=== PATIENT | male | born 1955 | race Caucasian/White ===

== ENCOUNTER 2021-08-15 08:58 | Inpatient (IN) | payer MEDICAID, SELFPAY ==
[~2021-08-15] VITALS: Ht 195.6 cm; Wt 93.7 kg
[~2021-08-15 08:58] MED LIST: LEVO100T5 PO
[2021-08-15 10:00] VITALS: BP 157/101
[2021-08-15] MEDS ORDERED: ALEV220T22 PO (10:15)
[2021-08-15] MEDS ORDERED: HOME MED LIST COMPLETE! XX SCH (10:20)
[2021-08-15] MEDS: NS 1,000 ML IV SCH ×2 (11:03→22:08)
[2021-08-15 11:08] LABS: BASO # 0.1 10^3/uL (0.0-0.2); EOS # 0.1 10^3/uL (0.0-0.5); EOS % 1.9 % (0.0-3.0); HEMATOCRIT 43.4 % (42.0-52.0); HEMOGLOBIN 14.3 g/dl (13.5-17.5); LYMPH # 1.2 10^3/uL (1.5-5.0); LYMPH % 17.4 % (24.0-44.0); MEAN CORPUSCULAR HEMOGLOBIN 31.4 pg (27.0-33.0); MEAN CORPUSCULAR HGB CONC 32.9 g/dl (32.0-36.5); MEAN CORPUSCULAR VOLUME 95.4 fl (80.0-96.0); MONO # 0.5 10^3/uL (0.0-0.8); MONO % 7.1 % (2.0-8.0); NEUTROPHILS # 4.9 10^3/uL (1.5-8.5); NEUTROPHILS % 72.3 % (36.0-66.0); PLATELET COUNT, AUTOMATED 292 10^3/uL (150-450); RED BLOOD COUNT 4.55 10^6/uL (4.30-6.10); WHITE BLOOD COUNT 6.8 10^3/uL (4.0-10.0)
[2021-08-15 11:23] LABS: INR 1.1; PARTIAL THROMBOPLASTIN TIME 31.1 SECONDS (25.9-37.0); PROTHROMBIN TIME 14.6 SECONDS (12.7-14.5)
[2021-08-15 11:35] LABS: CK-MB VALUE MASS < 1.0 NG/ML (<3.6); CPK CREATINE PHOSPHOKINASE 98 U/L (39-308); MB/CK RELATIVE INDEX 1.02 (< OR =4)
[2021-08-15 11:39] LABS: FREE THYROXINE INDEX 1.7 % (1.4-3.8); T UPTAKE 29 % (33-40)
[2021-08-15 11:40] LABS: ALBUMIN 3.8 GM/DL (3.2-5.2); ALT/SGPT 19 U/L (12-78); BILIRUBIN,TOTAL 0.8 MG/DL (0.2-1.0); BLOOD UREA NITROGEN 19 MG/DL (7-18); C REACTIVE PROTEIN QUANTITATIV 1.67 MG/DL (0.00-0.30); CALCIUM LEVEL 9.6 MG/DL (8.8-10.2); CARBON DIOXIDE LEVEL 30 MEQ/L (21-32); CHLORIDE LEVEL 102 MEQ/L (98-107); CREATININE FOR GFR 0.94 MG/DL (0.70-1.30); GLOMERULAR FILTRATION RATE > 60.0 (>49); GLUCOSE, FASTING 100 MG/DL (70-100); NT-PRO BNP 89 PG/ML (<125); POTASSIUM SERUM 4.1 MEQ/L (3.5-5.1); SODIUM LEVEL 138 MEQ/L (136-145); TOTAL PROTEIN 7.1 GM/DL (6.4-8.2)
[2021-08-15 11:52] LABS: HEPATITIS B SURFACE ANTIGEN NEGATIVE (NEGATIVE)
[2021-08-15] MEDS ORDERED: MORPHINE 15 MG SA TAB PO ONE (11:55)
[2021-08-15] MEDS ORDERED: MORPHINE 30 MG TAB **MSIR PO PRN (11:55)
[2021-08-15] MEDS ORDERED: PILL CUTTER 1 EACH XX PRN (12:00)
[2021-08-15 12:08] LABS: HEMOGLOBIN A1c 5.4 %
[2021-08-15 12:20] LABS: HEPATITIS B CORE ANTIBODY IGM NEGATIVE (NEGATIVE); HEPATITIS C VIRUS ABY INDEX 0.1 INDEX (<0.8)
--- NOTE | 2021-08-15 12:39 | REP ---
INDICATION: metastatic lung mass r/o brain mets COMPARISON: None. TECHNIQUE: Axial noncontrast images from the skull base to the thoracic inlet with coronal reformations. This CT examination was performed using the following dose reduction techniques: Automated exposure control, adjustment of mA and/or kv according to the patient's size, and use of iterative reconstruction technique. FINDINGS: Few small very subtle areas of white matter low-density change identified which are nonspecific given the patient's age and may represent microvascular ischemic disease. No significant edema, mass or mass effect. No hemorrhage. No extra-axial collection. The ventricles are symmetric. Cisterns are patent. Calvarium is intact. Paranasal sinuses and mastoid air cells are clear. IMPRESSION: Very subtle small areas of low-density white matter changes are nonspecific given the patient's age. No significant edema or obvious mass/mass effect. <Electronically signed by Germán Guido > 08/15/21 [id number]
[2021-08-15 12:45] LABS: ERYTHROCYTE SEDIMENTATION RATE 7 mm/hr (0-20)
[2021-08-15] MEDS: LIDOCAINE 5% (LIDODERM) PATCH TD SCH (12:46)
[2021-08-15 14:00] VITALS: BP 132/84
[2021-08-15] MEDS: GASTROGRAFIN SOLUTION 30ML PO SCH ×2 (14:05→15:03)
--- NOTE | 2021-08-15 15:07 | REP ---
INDICATION: RIGHT LUNG MASS, BONE PAIN R/O METS. COMPARISON: None. TECHNIQUE: Eighteen images in total FINDINGS: AP lateral views of the skull: No fracture or destructive osseous lesion. AP and lateral views of the cervical spine: Degenerative changes. No acute fracture or destructive osseous lesion. AP view of the chest: There is a fracture likely accompanied by a lytic lesion involving the 3rd rib on the left. There is a similar finding involving the left 6th rib. There appears to be enlargement of the anterior and of the left 6th rib. Lung lesions cannot be ruled out. Additional rib lesions cannot be ruled out. AP and lateral views of the lumbar spine there is an age undetermined grade 1 superior endplate compression deformity involving L3. Degenerative changes are also noted throughout. There is marginal osteophytosis seen throughout bilaterally particularly on the right at L2-3. There is no definite evidence of a lytic or blastic osseous lesion. AP pelvis: Bilateral hip DJD. No evidence of a definite lytic or blastic osseous lesion. AP view right femur: No evidence of a lytic or blastic osseous lesion. AP view left femur: No evidence of a lytic or blastic osseous lesion. Right humerus: No evidence of a lytic or blastic osseous lesion involving the humerus, however, there is evidence of a fracture involving what appears to be the 9th right rib possibly a pathological fracture. The age of this cannot be determined. Left humerus: No evidence of a lytic or blastic osseous lesion. The imaged portion of the left lung shows an irregular 3.7 cm sized coin lesion in the left lower lobe. AP lateral thoracic spine degenerative changes are present. No evidence of a lytic or blastic lesion involving the thoracic spine. IMPRESSION: 1. Multiple rib fractures likely pathological as described above. 2. Left lung lesion as described above. This is consistent with neoplasm. Contrast-enhanced CT examination of the chest is recommended. 3. Other findings as described above. <Electronically signed by Ishmael Loaiza > 08/15/21 [id number]
[2021-08-15] MEDS ORDERED: LORazepam 2 MG TAB PO PRN (15:45)
[2021-08-15] MEDS ORDERED: ISOVUE-370 76% 100ML VIAL As Ordered ONE (15:54)
--- NOTE | 2021-08-15 16:45 | REP ---
INDICATION: RIGHT LUNG MASS COMPARISON: None. TECHNIQUE: Standard helical technique after the intravenous administration of 100 cc Isovue 370 FINDINGS: There is mediastinal and hilar adenopathy. There are no pleural or pericardial effusions. The imaged upper abdomen is within normal limits. Evaluation of the osseous structures shows likely pathological fractures and lytic lesions involving the right 4th, 5th, 6, 7th, 9th, and 11th ribs and the left 2nd, 3rd, 4th, 6th, 7th, and 9th ribs. Additionally, lytic lesions are suggested involving the manubrium sternum and 1st sternal segment. Suspicious lesions are also seen involving T3, T5, and T7 vertebral bodies with a more subtle possibly blastic appearing lesion involving the T 9th vertebral body. Evaluation of the lung malone shows a spiculated 4.6 x 3.4 x 3 cm sized mass in the left lower lobe. The smaller asymmetric density is seen in the right CP angle which measures approximately 2.2 x 1.5 x 1.5 cm. IMPRESSION: 1. There is a large mass in the left lung lower lobe, as described above, consistent with neoplasm. 2. Smaller mass in the right CP angle as described above. Additional neoplastic change cannot be ruled out. 3. Evidence of skeletal metastasis as described above. 4. There is mediastinal and hilar adenopathy. <Electronically signed by Ishmael Loaiza > 08/15/21 [id number]
--- NOTE | 2021-08-15 16:57 | REP ---
INDICATION: RIGHT LUNG MASS. COMPARISON: None. TECHNIQUE: Standard helical technique after the intravenous administration of 100 cc Isovue 370 FINDINGS: There is an 8 mm sized focus of intense enhancement seen only on the immediate phase contrast-enhanced imaging in the posterior segment the right lobe of the liver. This has completely washed out on the venous phase imaging. The liver is otherwise unremarkable. The gallbladder, spleen, pancreas, adrenal glands, and kidneys are within normal limits. Bowel loops and the mesenteries are within normal limits. There is descending colon and sigmoid colon diverticulosis. The abdominal aorta and para-aortic regions are within normal limits. There is no para-aortic adenopathy. There is no free fluid or free air. Bone window technique throughout the examination shows numerous lytic lesions in the imaged portion of the right femur and in the right hemipelvis with evidence of lytic and blastic lesions throughout the sacrum. Mixed lytic and blastic lesions may also be developing and L2 and L3. IMPRESSION: 1. There is a small focus of intense enhancement seen in the posterior segment of the right lower liver, as described above, likely representing a vascular anomaly. 2. Extensive skeletal metastasis as described above. 3. Other findings as described above. <Electronically signed by Ishmael Loaiza > 08/15/21 [id number]
--- NOTE | 2021-08-15 18:12 | HPE ---
HISTORY AND PHYSICAL DATE OF ADMISSION: 08/15/2021 CHIEF COMPLAINT: Recurrent falls, spot in my lungs. 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 The patient says that last year, he slipped on some ice and fell on his back and hit his head. He was able to get up and crawled inside his house. He has had recurrent falls and then maybe about a month ago, he was sitting on a chair which had some wheels. It flipped over, hit his head again, complained of shoulder pain, back pain, knee pain and bilateral hip pain. The patient did not see a medical provider at that time and he felt that he had no significant pain that heating pad and occasional acetaminophen cannot deal with. On , he saw his primary care physician due to continued pain in his back. He was told that he has a lung mass with multiple metastatic lesions in the ribs, on the left third rib, left sixth rib and a 3.7 cm left lower lobe coin lesion. The patient was then sent to Dr. Feldman at the [facility] who saw him today. He complained of pain across his shoulder blades. He has had a weight loss from 225 lb to 93.7 kilos. He denies any cough, pleuritic chest pain, palpitations, hemoptysis, dyspnea on exertion, lightheadedness, dizziness, nausea, vomiting, abdominal pain, diarrhea. Appetite has been the same. The patient's vitals were stable, saturating 96% on room air. Bone osseous series shows lytic lesions at the left third and sixth rib with a 3.7 cm coin lesion in the left lower lobe, most likely neoplasm, recommendations for CT chest with contrast. Hospitalist was asked to admit the patient for expedited lung cancer workup and pain control. PAST MEDICAL HISTORY: 1. Hypothyroidism. 2. Recurrent falls. 3. Traumatic injuries to the right hip, left ankle. 4. Umbilical hernia. 5. Inguinal hernias. PAST SURGICAL HISTORY: 1. Bilateral inguinal hernia repairs. 2. Umbilical hernia repair with mesh. ALLERGIES: No known drug allergies. HOME MEDICATIONS: Synthroid 100 mcg daily. 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 He is DO NOT RESUSCITATE, DO NOT INTUBATE. Healthcare proxy is Sara Barth , patient's . The patient was a smoker, quit 14 years ago, previously smoked 1/2 pack per day since age of 19. He drinks beer daily, about 30 in a week. FAMILY HISTORY: Mother and father are . Mother had dementia. Father had schizophrenia and diabetes. REVIEW OF SYSTEMS: 10-point system negative aside from positive findings in HPI. PHYSICAL EXAMINATION: VITAL SIGNS: Temperature 97.6, pulse 72, respiratory rate 20, blood pressure 157/101, 97% on room air. GENERAL: The patient is disheveled appearing, dry mucous membranes, tapia, poor dentition. No JVD, thyromegaly. No cervical lymphadenopathy. LUNGS: Diminished but clear to auscultation, no wheezing, rales or rhonchi. HEART: S1, S2, sinus rhythm. No murmurs, rubs or gallops. ABDOMEN: Soft, nontender and nondistended. Positive bowel sounds x4 quadrants. EXTREMITIES: No cyanosis, clubbing or pitting edema. Laboratory data, imaging study, microbiology: Please see the chart. 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 The patient will be admitted as an inpatient for the following issues: 1. Left lower lobe coin lesion most likely metastatic lung cancer to the bones. Patient is admitted for expedited workup for cancer and treatment and pain control for his bone mets. CT, chest, abdomen and pelvis have been ordered. Then we will need to do a biopsy. Once the biopsy has returned, medical oncology work and radiation oncology for palliative radiation. For now for pain control for the metastatic rib lesions, patient will be given morphine 15 mg q.4 as needed, bowel regimen. 2. Hypothyroidism. Continue on Synthroid 100 mcg daily. 3. Weight loss secondary to possible cachexia from possible metastatic lung cancer to the bones with weight loss. 4. Previous history of tobacco abuse, quit 14 years ago. 5. Active tobacco abuse, drinks about 30 drinks a week, CIWA protocol, multivitamins, thiamine and folate. 6. DVT prophylaxis: With compression stockings and Lovenox. 7. Code Status: DO NOT RESUSCITATE, DO NOT INTUBATE.
[2021-08-15] MEDS: FOLIC ACID 1 MG TAB PO SCH (18:25)
[2021-08-15] MEDS: MULTIVITAMINS/MINERALS THERAP 1 TAB PO SCH (18:25)
[2021-08-15] MEDS: **NOTE PATIENT COMMENT** MISC XX SCH (21:00)
[2021-08-15 22:00] VITALS: BP 138/87
[2021-08-15] MEDS: THIAMINE 100 MG TAB PO SCH (22:04)
[2021-08-15] MEDS: MORPHINE 15 MG SA TAB PO SCH (22:08)
[2021-08-16] MEDS: LEVOTHYROXINE 100MCG TABLET (0.1MG) PO SCH (05:29)
[2021-08-16] MEDS: NS 1,000 ML IV SCH ×3 (05:31→20:20)
[2021-08-16 05:51] LABS: BASO # 0.1 10^3/uL (0.0-0.2); BASO % 1.1 % (0.0-1.0); EOS # 0.2 10^3/uL (0.0-0.5); EOS % 3.5 % (0.0-3.0); HEMATOCRIT 39.5 % (42.0-52.0); HEMOGLOBIN 12.9 g/dl (13.5-17.5); LYMPH # 1.5 10^3/uL (1.5-5.0); LYMPH % 28.3 % (24.0-44.0); MEAN CORPUSCULAR HEMOGLOBIN 31.3 pg (27.0-33.0); MEAN CORPUSCULAR HGB CONC 32.7 g/dl (32.0-36.5); MEAN CORPUSCULAR VOLUME 95.9 fl (80.0-96.0); MONO # 0.5 10^3/uL (0.0-0.8); MONO % 9.6 % (2.0-8.0); NEUTROPHILS # 3.1 10^3/uL (1.5-8.5); NEUTROPHILS % 57.1 % (36.0-66.0); PLATELET COUNT, AUTOMATED 260 10^3/uL (150-450); RED BLOOD COUNT 4.12 10^6/uL (4.30-6.10); WHITE BLOOD COUNT 5.4 10^3/uL (4.0-10.0)
[2021-08-16 06:00] VITALS: BP 123/83
[2021-08-16 06:16] LABS: BLOOD UREA NITROGEN 15 MG/DL (7-18); CALCIUM LEVEL 8.3 MG/DL (8.8-10.2); CARBON DIOXIDE LEVEL 27 MEQ/L (21-32); CHLORIDE LEVEL 106 MEQ/L (98-107); CREATININE FOR GFR 0.89 MG/DL (0.70-1.30); GLOMERULAR FILTRATION RATE > 60.0 (>49); GLUCOSE, FASTING 98 MG/DL (70-100); POTASSIUM SERUM 4.6 MEQ/L (3.5-5.1); SODIUM LEVEL 141 MEQ/L (136-145)
[2021-08-16] MEDS: MULTIVITAMINS/MINERALS THERAP 1 TAB PO SCH (08:26)
[2021-08-16] MEDS: MORPHINE 15 MG SA TAB PO SCH ×2 (08:27→20:16)
[2021-08-16] MEDS: FOLIC ACID 1 MG TAB PO SCH (08:28)
[2021-08-16] MEDS: THIAMINE 100 MG TAB PO SCH ×2 (08:28→20:11)
[2021-08-16] MEDS: LIDOCAINE 5% (LIDODERM) PATCH TD SCH (08:31)
--- NOTE | 2021-08-16 09:20 | RADONC.CN ---
Radiation Oncology Hx/Consult Radiation Oncology Consult Date of Service: Aug 16, 2021 Pt Identifier Titus Soto is a 66 year old male with a history of smoking who was admitted for workup of what appears to be a LLL primary lung cancer with metastases to bone, NB the right hip which is causing him pain and difficulty with ambulation. He is seen today to discuss his workup so far and for consideration of palliative RT to the right hip. 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 Prompted him to go to [facility] ED where he had a CXR which showed a 4 cm LLL mass. Plain films of hip were unrev ealing. He was referred to medical oncology @ [facility], Dr. Feldman facilitated admission for workup of the mass and palliative RT on 08/15/21. Recent data: Allergies / Meds Allergies: Coded Allergies: No Known Allergies (Verified Allergy, Unknown, 08/15/21) Home Meds Reported Medications Naproxen Sodium (Aleve) 220 Mg Tablet, 440 MG PO Q12H PRN for PAIN LEVEL 1-5 08/15/21 Levothyroxine Sodium (LEVOTHYROXINE SODIUM) 100 Mcg Tablet, 100 MCG PO DAILY 08/15/21 Vital Signs Vital Signs Date Time Temp Pulse Resp B/P (MAP) Pulse Ox O2 Delivery O2 Flow Rate FiO2 08/16/21 08:27 18 08/16/21 06:00 97.6 80 123/83 (96) 94 Room Air Diagnostic and Laboratory Diagnostic Review Radiologic images, relevant labs and pathology reports were personally reviewed and discussed with Mr. Soto. Laboratory Tests 08/15/21 10:49 08/16/21 05:25 Laboratory Tests 08/15/21 10:37: Methicillin-Resist S.aureus DNA PCR NOT DETECTED 08/15/21 10:49: White Blood Count 6.8, Red Blood Count 4.55, Hemoglobin 14.3, Hematocrit 43.4, Mean Corpuscular Volume 95.4, Mean Corpuscular Hemoglobin 31.4, Mean Corpuscular Hemoglobin Concent 32.9, Red Cell Distribution Width 12.2, Platelet Count 292, Immature Granulocyte % (Auto) 0.3, Neutrophils (%) (Auto) 72.3H, Lymphocytes (%) (Auto) 17.4L, Monocytes (%) (Auto) 7.1, Eosinophils (%) (Auto) 1.9, Basophils (%) (Auto) 1.0, Neutrophils # (Auto) 4.9, Lymphocytes # (Auto) 1.2L, Monocytes # (Auto) 0.5, Eosinophils # (Auto) 0.1, Basophils # (Auto) 0.1, Nucleated Red Blood Cells % (auto) 0.0, Erythrocyte Sedimentation Rate 7, Prothrombin Time 14.6H, Prothromb Time International Ratio 1.10, Activated Partial Thromboplast Time 31.1, Sodium Level 138, Potassium Level 4.1, Chloride Level 102, Carbon Dioxide Level 30, Anion Gap 6L, Blood Urea Nitrogen 19H, Creatinine 0.94, Glomerular Filtration Rate > 60.0, Fasting Glucose 100, Estimated Mean Plasma Glucose 108, Hemoglobin A1c 5.4, Lactic Acid Level 0.9, Calcium Level 9.6, Total Bilirubin 0.8, Aspartate Amino Transf (AST/SGOT) 27, Alanine Aminotransferase (ALT/SGPT) 19, Alkaline Phosphatase 535H, Total Creatine Kinase 98, Creatine Kinase MB < 1.0, Creatine Kinase MB Relative Index 1.02, Troponin I High Sensitivity < 3.0L, C-Reactive Protein, Quantitative 1.67H, FI-Rkv-V-Type Natriuretic Peptide 89, Total Protein 7.1, Albumin 3.8, Albumin/Globulin Ratio 1.2, Prostate Specific Antigen Screen 1.96, Procalcitonin <0.05, Thyroid Stimulating Hormone (TSH) 17.000H, Free Thyroxine Index 1.7, Thyroxine (T4) 6.0, Triiodothyronine (T3) Uptake 29L, Hepatitis A IgM Antibody NEGATIVE, Hepatitis B Surface Antigen NEGATIVE, Hepatitis B Core IgM Antibody NEGATIVE, Hepatitis C Antibody Index 0.1 08/16/21 05:25: White Blood Count 5.4, Red Blood Count 4.12L, Hemoglobin 12.9L, Hematocrit 39.5L, Mean Corpuscular Volume 95.9, Mean Corpuscular Hemoglobin 31.3, Mean Corpuscular Hemoglobin Concent 32.7, Red Cell Distribution Width 12.2, Platelet Count 260, Immature Granulocyte % (Auto) 0.4, Neutrophils (%) (Auto) 57.1, Lymphocytes (%) (Auto) 28.3, Monocytes (%) (Auto) 9.6H, Eosinophils (%) (Auto) 3.5H, Basophils (%) (Auto) 1.1H, Neutrophils # (Auto) 3.1, Lymphocytes # (Auto) 1.5, Monocytes # (Auto) 0.5, Eosinophils # (Auto) 0.2, Basophils # (Auto) 0.1, Nucleated Red Blood Cells % (auto) 0.0, Sodium Level 141, Potassium Level 4.6, Chloride Level 106, Carbon Dioxide Level 27, Anion Gap 8, Blood Urea Nitrogen 15, Creatinine 0.89, Glomerular Filtration Rate > 60.0, Fasting Glucose 98, Calcium Level 8.3L Assessment and Plan Impression Mr. Soto is a 66 year old male with a history of [] who was referred to the Department of Radiation Oncology for consideration of []. Plan We had an extensive discussion with Mr. Soto regarding the diagnosis at hand and available therapeutic options. We discussed the logistics of receiving radiation therapy in detail including the need for a 1-time planning session. After discussing the risks, benefits and alternatives to radiation therapy, Mr. Soto was amenable to pursuing radiotherapy. All questions were answered to the patient's satisfaction. We instructed the patient that if there were any questions,concerns or changes in clinical status in the interim to contact us. Billing Statement Total time of minutes was spent preparing for the visit , obtaining HPI , examining the patient , reviewing diagnostic tests , discussing management options , coordinating care , and writing this note . OSMEL DUKES MD Aug 16, 2021 09:20
--- NOTE | 2021-08-16 10:01 | RADONC.CN ---
Radiation Oncology Hx/Consult Radiation Oncology Consult Date of Service: Aug 16, 2021 Pt Identifier Titus Soto is a 66 year old male with a history of smoking who was admitted for workup of what appears to be a LLL primary lung cancer with metastases to bone, NB the right hip which is causing him pain and difficulty with ambulation. He is seen today to discuss his workup so far and for consideration of palliative RT to the right hip. 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 Prompted him to go to [facility] ED where he had a CXR which showed a 4 cm LLL mass. Plain films of hip were unrevealing. He was referred to medical oncology @ [facility], Dr. Feldman facilitated admission for workup of the mass and palliative RT on 08/15/21. Recent data: 08/15/21 CT chest FINDINGS: There is mediastinal and hilar adenopathy. There are no pleural or pericardial effusions. The imaged upper abdomen is within normal limits. Evaluation of the osseous structures shows likely pathological fractures and lytic lesions involving the right 4th, 5th, 6, 7th, 9th, and 11th ribs and the left 2nd, 3rd, 4th, 6th, 7th, and 9th ribs. Additionally, lytic lesions are suggested involving the manubrium sternum and 1st sternal segment. Suspicious lesions are also seen involving T3, T5, and T7 vertebral bodies with a more subtle possibly blastic appearing lesion involving the T 9th vertebral body. Evaluation of the lung malone shows a spiculated 4.6 x 3.4 x 3 cm sized mass in the left lower lobe. The smaller asymmetric density is seen in the right CP angle which measures approximately 2.2 x 1.5 x 1.5 cm. IMPRESSION: 1. There is a large mass in the left lung lower lobe, as described above, consistent with neoplasm. 2. Smaller mass in the right CP angle as described above. Additional neoplastic change cannot be ruled out. 3. Evidence of skeletal metastasis as described above. 4. There is mediastinal and hilar adenopathy. 08/15/21 CT abdomen pelvis FINDINGS: There is an 8 mm sized focus of intense enhancement seen only on the immediate phase contrast-enhanced imaging in the posterior segment the right lobe of the liver. This has completely washed out on the venous phase imaging. The liver is otherwise unremarkable. The gallbladder, spleen, pancreas, adrenal glands, and kidneys are within normal limits. Bowel loops and the mesenteries are within normal limits. There is descending colon and sigmoid colon diverticulosis. The abdominal aorta and para-aortic regions are within normal limits. There is no para-aortic adenopathy. There is no free fluid or free air. Bone window technique throughout the examination shows numerous lytic lesions in the imaged portion of the right femur and in the right hemipelvis with evidence of lytic and blastic lesions throughout the sacrum. Mixed lytic and blastic lesions may also be developing and L2 and L3. IMPRESSION: 1. There is a small focus of intense enhancement seen in the posterior segment of the right lower liver, as described above, likely representing a vascular anomaly. 2. Extensive skeletal metastasis as described above. 3. Other findings as described above. Interval History Titus reports his main goal is to get back to work. He has been having right hip and knee pain for ~ 3 weeks, steadily worsening, now has trouble walking due to pain. He denies falls or trauma to the hip. He has pain in the shoulders as well. The pain in the hip is aching and 5/10 at all times, worse when he bears weight. He has had a 20 lbs unintentional weight loss in the past year. Past Medical History: Hernias Hypothyroidism Past Surgical History: BL hernia repairs Family History: No significant cancer history Social History: 30 pack year former smoker Drinks 30 beers per week Allergies / Meds Allergies: Coded Allergies: No Known Allergies (Verified Allergy, Unknown, 08/15/21) Home Meds Reported Medications Naproxen Sodium (Aleve) 220 Mg Tablet, 440 MG PO Q12H PRN for PAIN LEVEL 1-5 08/15/21 Levothyroxine Sodium (LEVOTHYROXINE SODIUM) 100 Mcg Tablet, 100 MCG PO DAILY 08/15/21 Vital Signs Vital Signs Date Time Temp Pulse Resp B/P (MAP) Pulse Ox O2 Delivery O2 Flow Rate FiO2 08/16/21 08:27 18 08/16/21 06:00 97.6 80 123/83 (96) 94 Room Air General Exam: Alert, Cooperative, No Acute Distress Chest Exam: Clear to auscultation Heart Exam: Rate Normal, Regular Rhythm Extremity Exam: Negative: Edema Neuro Exam: Normal Speech, Strength at 5/5 X4 ext, Cranial Nerves 3-12 NL, Other (No tenderness to palpation over the right hemipelvis) Diagnostic and Laboratory Diagnostic Review Radiologic images, relevant labs and pathology reports were personally reviewed and discussed with Mr. Soto. Laboratory Tests 08/15/21 10:49 08/16/21 05:25 Laboratory Tests 08/15/21 10:37: Methicillin-Resist S.aureus DNA PCR NOT DETECTED 08/15/21 10:49: White Blood Count 6.8, Red Blood Count 4.55, Hemoglobin 14.3, Hematocrit 43.4, Mean Corpuscular Volume 95.4, Mean Corpuscular Hemoglobin 31.4, Mean Corpuscular Hemoglobin Concent 32.9, Red Cell Distribution Width 12.2, Platelet Count 292, Immature Granulocyte % (Auto) 0.3, Neutrophils (%) (Auto) 72.3H, Lymphocytes (%) (Auto) 17.4L, Monocytes (%) (Auto) 7.1, Eosinophils (%) (Auto) 1.9, Basophils (%) (Auto) 1.0, Neutrophils # (Auto) 4.9, Lymphocytes # (Auto) 1.2L, Monocytes # (Auto) 0.5, Eosinophils # (Auto) 0.1, Basophils # (Auto) 0.1, Nucleated Red Blood Cells % (auto) 0.0, Erythrocyte Sedimentation Rate 7, Prothrombin Time 14.6H, Prothromb Time International Ratio 1.10, Activated Partial Thromboplast Time 31.1, Sodium Level 138, Potassium Level 4.1, Chloride Level 102, Carbon Dioxide Level 30, Anion Gap 6L, Blood Urea Nitrogen 19H, Creatinine 0.94, Valerie merular Filtration Rate > 60.0, Fasting Glucose 100, Estimated Mean Plasma Glucose 108, Hemoglobin A1c 5.4, Lactic Acid Level 0.9, Calcium Level 9.6, Total Bilirubin 0.8, Aspartate Amino Transf (AST/SGOT) 27, Alanine Aminotransferase (ALT/SGPT) 19, Alkaline Phosphatase 535H, Total Creatine Kinase 98, Creatine Kinase MB < 1.0, Creatine Kinase MB Relative Index 1.02, Troponin I High Sensitivity < 3.0L, C-Reactive Protein, Quantitative 1.67H, ZV-Vup-V-Type Natriuretic Peptide 89, Total Protein 7.1, Albumin 3.8, Albumin/Globulin Ratio 1.2, Prostate Specific Antigen Screen 1.96, Procalcitonin <0.05, Thyroid Stimulating Hormone (TSH) 17.000H, Free Thyroxine Index 1.7, Thyroxine (T4) 6.0, Triiodothyronine (T3) Uptake 29L, Hepatitis A IgM Antibody NEGATIVE, Hepatitis B Surface Antigen NEGATIVE, Hepatitis B Core IgM Antibody NEGATIVE, Hepatitis C Antibody Index 0.1 08/16/21 05:25: White Blood Count 5.4, Red Blood Count 4.12L, Hemoglobin 12.9L, Hematocrit 39.5L, Mean Corpuscular Volume 95.9, Mean Corpuscular Hemoglobin 31.3, Mean Corpuscular Hemoglobin Concent 32.7, Red Cell Distribution Width 12.2, Platelet Count 260, Immature Granulocyte % (Auto) 0.4, Neutrophils (%) (Auto) 57.1, Lymphocytes (%) (Auto) 28.3, Monocytes (%) (Auto) 9.6H, Eosinophils (%) (Auto) 3.5H, Basophils (%) (Auto) 1.1H, Neutrophils # (Auto) 3.1, Lymphocytes # (Auto) 1.5, Monocytes # (Auto) 0.5, Eosinophils # (Auto) 0.2, Basophils # (Auto) 0.1, Nucleated Red Blood Cells % (auto) 0.0, Sodium Level 141, Potassium Level 4.6, Chloride Level 106, Carbon Dioxide Level 27, Anion Gap 8, Blood Urea Nitrogen 15, Creatinine 0.89, Glomerular Filtration Rate > 60.0, Fasting Glucose 98, Calcium Level 8.3L Assessment and Plan Impression Mr. Soto is a 66 year old male with a history of smoking who was admitted for workup of what appears to be a LLL primary lung cancer with metastases to bone, NB the right hip which is causing him pain and difficulty with ambulation. He is seen today to discuss his workup so far and for consideration of palliative RT to the right hip. Stage LLL NSCLC [id number] stage IVB Performance Status ECOG 2 Plan We had an extensive discussion with Mr. Soto regarding the diagnosis at hand and available therapeutic options. I reviewed him imaging with him to date, which shows a likely LLL primary lung cancer and diffuse bone metastases. I do not see any evidence of visceral metastases, which bodes well. With respect the right hip pain, I recommend that we proceed with palliative RT immediately, which is in line with his desire to return to full function, and continue to work. For treatment I will give 20 Gy in 5 fractions to the right killian-pelvis, as his pain is more diffuse in character across the right hip region than focal, and there are a number of lesions in the region. We discussed the logistics of receiving radiation therapy in detail including the need for a 1-time planning session. This will occur today. Treatment will proceed tomorrow. We reviewed the side effects of treatment including fatigue and skin redness. We can revisit treatment of other sites as the need arises. If he is discharged prior to completion of the 5 fraction course, he may continue as an outpatient without interruption. After discussing the risks, benefits and alternatives to radiation therapy, Mr. Soto was amenable to pursuing radiotherapy. All questions were answered to the patient's satisfaction. We instructed the patient that if there were any questions,concerns or changes in clinical status in the interim to contact us. Recommendations Obtain biopsy Palliative RT to right hemipelvis 20 Gy in 5 fractions Simulation today First treatment tomorrow Billing Statement Total time of [51] minutes was spent preparing for the visit [3], obtaining HPI [7], examining the patient [3], reviewing diagnostic tests [8], discussing management options [14], coordinating care [4], and writing this note [12]. OSMEL DUKES MD Aug 16, 2021 10:01
[2021-08-16 11:08] LABS: ANTINUCLEAR ANTIBODIES DIRECT Negative (Negative)
[2021-08-16 14:00] VITALS: BP_SYST 152; BP_SYST 155; BP_DIAS 86; BP_DIAS 99
[2021-08-16 14:30] VITALS: BP 152/86
--- NOTE | 2021-08-16 14:34 | IPN ---
PROGRESS NOTE DATE: 08/16/2021 SUBJECTIVE: Patient complains of 3/10 pain in the bilateral hips, knees, shoulder on the right. He complains of 7/10 pain at the flank on the left side. Afebrile, no chills overnight. OBJECTIVE: Vital signs: Temperature 98, pulse 62, respiratory rate 19, blood pressure 123/83, 97% on room air. General: Awake, alert, oriented times 3, answering questions appropriately. Lungs: Clear to auscultation, no wheezes, rhonchi or rales. Heart: S1 and S2 sinus rhythm. Abdomen: Soft, nontender, nondistended, positive bowel sounds. Extremities: No cyanosis, clubbing or pitting edema. LABORATORY DATA/IMAGING STUDIES/MICROBIOLOGY: Please see the chart. 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 Feldman, Medical Oncologist, for admission for expedited staging and diagnosis. IMPRESSIONS/PLAN: 1. Left lower lobe mass most likely metastatic lung cancer to the bones: Patient will be undergoing CT guided biopsy today. Abdomen has a small lesion on the liver. Skeletal survey and bone scan shows diffuse metastatic skeletal disease in the ribs and hips, sacrum. Radiation oncology is consulted for palliative radiation. 2. Hypothyroidism: On Synthroid 100 mcg daily. 3. Weight loss related to malignancy and hypothyroidism. 4. History of tobacco abuse: Quit 14 years ago. 5. Active alcohol abuse: Currently on CIWA protocol. 6. DVT prophylaxis: With compression stockings. CODE STATUS: Do Not Intubate, Do Not Resuscitate.
--- NOTE | 2021-08-16 15:43 | REP ---
INDICATION: POST LEFT LUNG BIOPSY, 1 VIEW, PA EXPIRATION. COMPARISON: CT biopsy images today, CT chest 08/15/2021. TECHNIQUE: Single expiratory view chest. FINDINGS: There is a small left apical pneumothorax status post left lung biopsy. Left lower lobe mass is seen. The heart is not significantly enlarged. The mediastinal silhouette appears unremarkable. IMPRESSION: Small left apical pneumothorax status post left lung biopsy. <Electronically signed by Dimitry Oates > 08/16/21 [id number]
[2021-08-16] MEDS ORDERED: ACETAMINOPHEN TAB 650MG DOSE (2X325MG) PO PRN (16:50)
--- NOTE | 2021-08-16 17:10 | REP ---
INDICATION: LEFT LOWER LOBE LUNG LESION BIOPSY CYTOLOGY. COMPARISON: None. TECHNIQUE: The procedure is performed by CANDIDO Evans, under the direct supervision of Dr. Oates. The risks and benefits of the procedure were explained to the patient and informed consent was obtained both orally and written. Directly prior to the start of the procedure, a formal timeout was done in the exam room. The left lower lobe lung mass was localized using CT guidance. Skin was prepped and draped in the usual sterile fashion. Ten ml of 1% lidocaine 10 mg/ml was used as a local anesthetic. FINDINGS: Using CT guidance a 19/20 gauge coaxial needle biopsy system was inserted and advanced into the nodule. Four core biopsy samples were obtained and sent to the lab. CT images obtained directly after the biopsy show evidence of a small pneumothorax. After the appropriate amount of monitored convalescence the patient was discharged from the department. IMPRESSION: Technically successful left lower lobe lung biopsy yielding 4 core biopsy specimens. These were sent to the lab for further evaluation, results pending. <Electronically signed by Raquel Patiño > 08/16/21 [id number] <Electronically signed by Dimitry Oates > 08/16/21 [id number]
[2021-08-16] MEDS: **NOTE PATIENT COMMENT** MISC XX SCH (20:19)
[2021-08-16 22:00] VITALS: BP 124/58
[2021-08-17 06:00] VITALS: BP_SYST 124; BP_SYST 132; BP_DIAS 58; BP_DIAS 78
[2021-08-17] MEDS: LEVOTHYROXINE 100MCG TABLET (0.1MG) PO SCH (06:25)
[2021-08-17 07:10] LABS: BASO # 0.1 10^3/uL (0.0-0.2); BASO % 1.3 % (0.0-1.0); EOS # 0.2 10^3/uL (0.0-0.5); EOS % 3.5 % (0.0-3.0); HEMATOCRIT 39.8 % (42.0-52.0); HEMOGLOBIN 13.1 g/dl (13.5-17.5); LYMPH # 1.4 10^3/uL (1.5-5.0); MEAN CORPUSCULAR HEMOGLOBIN 31.3 pg (27.0-33.0); MEAN CORPUSCULAR HGB CONC 32.9 g/dl (32.0-36.5); MONO # 0.6 10^3/uL (0.0-0.8); MONO % 10.3 % (2.0-8.0); NEUTROPHILS # 3.2 10^3/uL (1.5-8.5); NEUTROPHILS % 58.5 % (36.0-66.0); PLATELET COUNT, AUTOMATED 255 10^3/uL (150-450); RED BLOOD COUNT 4.19 10^6/uL (4.30-6.10); WHITE BLOOD COUNT 5.4 10^3/uL (4.0-10.0)
[2021-08-17] MEDS: NS 1,000 ML IV SCH (07:12)
[2021-08-17 07:33] LABS: BLOOD UREA NITROGEN 12 MG/DL (7-18); CALCIUM LEVEL 8.5 MG/DL (8.8-10.2); CARBON DIOXIDE LEVEL 30 MEQ/L (21-32); CHLORIDE LEVEL 105 MEQ/L (98-107); CREATININE FOR GFR 0.87 MG/DL (0.70-1.30); GLOMERULAR FILTRATION RATE > 60.0 (>49); GLUCOSE, FASTING 97 MG/DL (70-100); POTASSIUM SERUM 4.1 MEQ/L (3.5-5.1); SODIUM LEVEL 138 MEQ/L (136-145)
[2021-08-17] MEDS: FOLIC ACID 1 MG TAB PO SCH (07:59)
[2021-08-17] MEDS: THIAMINE 100 MG TAB PO SCH (07:59)
[2021-08-17] MEDS: MULTIVITAMINS/MINERALS THERAP 1 TAB PO SCH (07:59)
[2021-08-17] MEDS: MORPHINE 15 MG SA TAB PO SCH (08:01)
[2021-08-17] MEDS: LIDOCAINE 5% (LIDODERM) PATCH TD SCH (08:04)
--- NOTE | 2021-08-17 09:01 | REP ---
INDICATION: pneumothorax s/p thoracentesis COMPARISON: None. TECHNIQUE: PA and lateral. FINDINGS: Left lower lobe opacity consistent with area of atelectasis/pneumonia along with small pleural effusions. No pneumothorax. Mediastinum and cardiac silhouette are normal. Skeletal structures intact. IMPRESSION: Left lower lobe airspace disease and small bilateral pleural effusions. <Electronically signed by Germán Guido > 08/17/21 [id number]
--- NOTE | 2021-08-17 09:04 | ECHO ---
ECHOCARDIOGRAM DATE OF PROCEDURE: 08/16/2021 Age: Gender: M Height: 195 cm Weight: 94 kg REFERRING PHYSICIAN: Dr. Soto INDICATION: Dyspnea MEASUREMENTS: IVS: 1.1 LV: 4.9 LVPW: 1.2 LA: 3.3 Aorta: 3.5 Ascending aorta: 4.1 Mitral E wave velocity is 75; A wave 84 E prime septal: 7.8 E prime lateral: 10.2 FINDINGS: This study is of good technical quality. Underlying sinus rhythm. Left ventricle is normal size. Borderline left ventricular hypertrophy is noted. Overall normal left ventricular (LV) systolic function with estimated ejection fraction (EF) around 60%. Normal right ventricle (RV) size and systolic function. Both atria appear normal. Aortic, mitral and tricuspid valves appear normal. Pulmonic valve was not well seen. No pericardial effusion is noted. Inferior vena cava is a normal size and appropriately collapses with inspiration indicative of normal central venous pressure. Aortic root and aortic arch, and abdominal aorta, all appear normal. There is mild dilatation of ascending aorta measuring 4.1 cm. Mitral inflow pattern and tissue Doppler imaging of mitral annulus revealed grade 1 diastolic dysfunction. CONCLUSIONS: 1. Study is of good technical quality; underlying sinus rhythm. 2. Normal left ventricle (LV) size with borderline left ventricular hypertrophy (LVH) and preserved left ventricular (LV) systolic function. Estimated left ventricular ejection fraction (LVEF) 60% to 65%. Grade 1 diastolic dysfunction. 3. No significant valvular disease. 4. Normal central venous pressure. 5. Unable to estimate pulmonary artery pressure but no signs to suggest pulmonary hypertension. 6. Mildly dilated ascending aorta (4.1 cm).
[2021-08-17] MEDS ORDERED: MORP15TASA PO (10:41)
[2021-08-17] MEDS ORDERED: MSIR30TA PO (10:41)
[2021-08-17] MEDS ORDERED: SENO8.6T10 PO (10:41)
[2021-08-17] MEDS ORDERED: OXYC-517 PO (11:18)
--- NOTE | 2021-08-17 11:25 | IPN ---
PROGRESS NOTE DATE: 08/17/2021 SUBJECTIVE: Patient seen and examined at the bedside. Chart has been reviewed. He complains of left-sided hip pain and pelvic pain, rating it at 7/10 and worsens to 10/10 when he moves around and bears weight. He is afebrile, no cough, chills, nausea vomiting, diarrhea or abdominal pain, no other chief complaint. OBJECTIVE: Vital signs: Temperature 97.6, pulse 76, respiratory rate 20, blood pressure 124/58, 94% on room air. General: Patient is awake, alert, oriented to person, place and time, answering questions appropriately. Lungs: Clear to auscultation, no wheezing, rales or rhonchi. Heart: S1, S2, sinus rhythm. Abdomen: Soft, nontender, nondistended. Extremities: No pitting edema. LABORATORY DATA, IMAGING STUDIES, MICROBIOLOGY: Pathology shows adenocarcinoma, moderately differentiated, left lung, CT guided biopsy report. ASSESSMENT AND PLAN: This is a 66-year-old male with new diagnosis of left lung moderately differentiated adenocarcinoma of the lung with metastatic lesions to the right fourth, fifth, sixth, seventh, ninth and eleventh rib, left second and manubrium of the sternum with small focus in the posterior segment of the right lower liver but most likely representing vascular anomalies and skeletal metastasis. IMPRESSION: 1. 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 Patient is receiving palliative radiation. Dr. Lemos had had an extensive discussion with the patient regarding therapeutic options. Due to severe right hip pain, palliative radiation has been started today on 08/17/2021with 20 Gy in 5 fractions to the right hemipelvis with side effects of fatigue and skin redness. According to Dr. Lemos, patient might be discharged home to continue outpatient without interruption. Followup with Dr. Feldman as an outpatient. 2. Hypothyroidism: Continue on Synthroid 100 mcg daily. 3. Alcohol abuse: On multivitamin, thiamine, folate, CIWA protocol. 4. Tobacco abuse: The patient has quit years ago. DISPOSITION: May be discharged home today if pain is controlled. Outpatient followup with Dr. Feldman and radiation oncologist, Dr. Lemos to continue treatment. [facility]
[2021-08-17 14:00] VITALS: BP 152/85
[2021-08-18] MEDS ORDERED: OXYC-517 PO (11:36)
--- NOTE | 2021-08-18 11:38 | DS.PDOC ---
Discharge Summary General Date of Admission Aug 15, 2021 at 09:49 Date of Discharge 08/17/21 addendum: Pt's pharmacy called re: morphine being unavailable until 08/21/21. plan: oxycodone 5mg po q6hrs prn x 5 days #20 tabs electronically prescribed. Discharge Summary PROCEDURES PERFORMED DURING STAY: [None]. ADMITTING DIAGNOSES: 1. . DISCHARGE DIAGNOSES: 1. . COMPLICATIONS/CHIEF COMPLAINT: Right Lung Cancer. HISTORY OF PRESENT ILLNESS: . HOSPITAL COURSE: . DISCHARGE MEDICATIONS: Please see below. ALLERGIES: Please see below. PHYSICAL EXAMINATION ON DISCHARGE: VITAL SIGNS: Please see below. GENERAL: HEENT: NECK: CARDIOVASCULAR EXAMINATION: RESPIRATORY EXAMINATION: ABDOMINAL EXAMINATION: EXTREMITIES: SKIN: NEUROLOGICAL EXAMINATION: PSYCHIATRIC EXAMINATION: LABORATORY DATA: Please see below. IMAGING: PROGNOSIS: ACTIVITY: [As tolerated]. DIET: DISCHARGE PLAN: DISPOSITION: Home, Self-Care. DISCHARGE INSTRUCTIONS: 1. . ITEMS TO FOLLOWUP ON ON OUTPATIENT: 1. . DISCHARGE CONDITION: [Stable]. TIME SPENT ON DISCHARGE: minutes. Vital Signs/I&Os Vital Signs Date Time Temp Pulse Resp B/P (MAP) Pulse Ox O2 Delivery O2 Flow Rate FiO2 08/17/21 14:00 97.5 83 19 152/85 (107) 97 08/17/21 06:00 Room Air I&O- Last 24 Hours up to 6 AM 08/18/21 06:00 Intake Total 600 ml Output Total 500 ml Balance 100 ml Microbiology Microbiology 08/15/21 Blood Culture - Preliminary, Resulted No Growth after 48 hours. All Specime... 08/15/21 Blood Culture - Preliminary, Resulted No Growth after 72 hours. All specime... 08/15/21 Respiratory Virus Panel (PCR) ([facility]) - Final, Complete Discharge Medications Scheduled Levothyroxine Sodium (Levothyroxine Sodium) 100 Mcg Tablet, 100 MCG PO DAILY, (Reported) Morphine Sulfate (Morphine Sulfate ER) 15 Mg Tablet.er, 15 MG PO BID Scheduled PRN Morphine Sulfate (Morphine Sulfate) 30 Mg Tablet, 15 MG PO Q4HP PRN for SEVERE PAIN (PS 8-10) Oxycodone HCl (Oxycodone HCl) 5 Mg Tablet, 1 TAB PO Q4HP PRN for pain Oxycodone HCl (Oxycodone HCl) 5 Mg Tablet, 5 MG PO Q6HP PRN for pain Sennosides/Docusate Sodium (Senokot-S Tablet) 1 Each Tablet, 1 TAB PO BIDP PRN for BOWEL CARE/CONSTIPATION Allergies Coded Allergies: No Known Allergies (Verified Allergy, Unknown, 08/15/21) CLARISSE GAO MD Aug 18, 2021 11:38
== END 2021-08-17 15:10 | disposition home or self-care (01) | DRG 136 ==
LOC: M MSPAV 09:49
PROVIDERS: ADMIT General Practice; ATTEND General Practice
PROC: 0BBJ3ZX Excision of Left Lower Lung Lobe, Percutaneous Approach, Diagnostic (ICD-10-PCS; principal; 2021-08-16 15:30)
DX: C34.32 Malignant neoplasm of lower lobe, left bronchus or lung (principal); C79.51 Secondary malignant neoplasm of bone; E03.9 Hypothyroidism, unspecified; R63.4 Abnormal weight loss; Z87.891 Personal history of nicotine dependence; Z66 Do not resuscitate; Z79.899 Other long term (current) drug therapy

== ENCOUNTER 2021-08-24 12:16 | Outpatient (RCR) | payer MEDICAID ==
[~2021-08-24 12:16] MED LIST changes: +ALEV220T22 PO; +LIDOCAINE 1% MDV 20ML VIAL As Ordered ONE; +MORP15TASA PO; +MSIR30TA PO; +OXYC-517 PO; +SENO8.6T10 PO
== END 2021-08-25 ==
LOC: M ONCR 12:16
PROVIDERS: ATTEND General Practice
DX: C79.51 Secondary malignant neoplasm of bone (principal)